=== PATIENT | female | born 2000 | race Caucasian/White ===

== ENCOUNTER 2023-04-13 22:19 | Emergency (ER) | payer BC ==
[~2023-04-13] VITALS: Ht 160 cm; Wt 100.0 kg
[2023-04-13] MEDS ORDERED: BACTRIM DS 8001 TAB PO (23:39)
[2023-04-13] MEDS ORDERED: CEPHALEXIN500 M1 PO (23:39)
[2023-04-13 23:50] VITALS: BP 128/79; PULSE 83; TEMP 98.5
== END 2023-04-13 23:50 | disposition home or self-care (01) ==
LOC: COL.ER 22:19
DX: L01.00 Impetigo, unspecified (principal); Z91.040 Latex allergy status